=== PATIENT | female | born 1980 | race African-American/Black ===

== ENCOUNTER 2018-02-21 20:45 | Emergency (ER) | payer MEDICAID ==
[~2018-02-21] VITALS: Ht 149.9 cm; Wt 59.0 kg
[~2018-02-21 20:45] MED LIST: BUPROPION; DIVALPROEX; RISPERIDONE
[2018-02-21 21:04] VITALS: BP 103/44
== END 2018-02-22 | disposition left against medical advice (07) ==
LOC: ER 20:45
DX: R10.9 Unspecified abdominal pain (principal); F17.200 Nicotine dependence, unspecified, uncomplicated; Z53.21 Procedure and treatment not carried out due to patient leaving prior to being seen by health care provider

== ENCOUNTER 2018-02-22 21:16 | Emergency (ER) | payer MEDICAID ==
[~2018-02-22] VITALS: Ht 149.9 cm; Wt 58.0 kg
[2018-02-23 03:16] LABS: CLARITY URINE CLEAR (CLEAR); COLOR URINE YELLOW (YELLOW); KETONES URINE NEGATIVE (NEGATIVE); LEUKOCYTE ESTERASE URINE NEGATIVE (NEGATIVE); NITRITE URINE NEGATIVE (NEGATIVE); OCCULT BLOOD URINE NEGATIVE (NEGATIVE); PROTEIN URINE NEGATIVE (NEGATIVE); SPECIFIC GRAVITY URINE 1.019 (1.005-1.030)
[2018-02-23] MEDS ORDERED: LIDOCAINE HCL 1% 20ML VIAL (Pyxis) INJ INFIL ONE (03:30)
[2018-02-23] MEDS ORDERED: CEFTRIAXONE SODIUM 250 MG/VIAL IM ONE (03:30)
[2018-02-23] MEDS ORDERED: AZITHROMYCIN 500 MG TABLET PO ONE (03:30)
[2018-02-23 04:20] VITALS: BP 100/60
== END 2018-02-23 04:20 | disposition home or self-care (01) ==
LOC: ER 21:16
DX: N89.8 Other specified noninflammatory disorders of vagina (principal)
CPT/HCPCS: 81003; 87210; 96372; 99284; J0696; J3490; Z7610; 99406

== ENCOUNTER 2018-04-15 10:32 | Emergency (ER) | payer MEDICAID ==
[~2018-04-15] VITALS: Ht 152.4 cm; Wt 62.0 kg
[2018-04-15] MEDS ORDERED: ONDANSETRON HCL 4MG/2ML VIAL IV STA (12:26)
[2018-04-15] MEDS ORDERED: SODIUM CHLORIDE 0.9% 1,000 ML IV ONE (12:26)
[2018-04-15 13:28] LABS: BASOPHILS % 0.4 % (0.0-2.0); EOSINOPHILS % 0.2 % (0.0-5.0); HEMATOCRIT. 25.7 % (36.0-48.0); HEMOGLOBIN. 8.2 g/dL (12.0-16.0); LYMPHOCYTES % 38.3 % (20.0-50.0); MEAN CORPUSCULAR HEMOGLOBIN 25.1 pg (28.0-32.0); MEAN CORPUSCULAR VOLUME 78.3 fL (81.0-99.0); MEAN PLATELET VOLUME 8.4 fl (7.4-10.4); NEUTROPHILS % 55.1 % (40.0-76.0); PLATELET 453 x1000/uL (130-400); RED BLOOD CELL COUNT 3.28 mill/uL (4.2-5.4); RED CELL DISTRIBUTION WIDTH 17.3 % (11.6-14.6)
[2018-04-15 13:32] LABS: CHLORIDE 104 mEq/L (98-107)
[2018-04-15 13:52] LABS: HCG SCREEN NEGATIVE
[2018-04-15 15:22] LABS: CLARITY URINE CLOUDY (CLEAR); COLOR URINE YELLOW (YELLOW); KETONES URINE NEGATIVE (NEGATIVE); LEUKOCYTE ESTERASE URINE NEGATIVE (NEGATIVE); NITRITE URINE NEGATIVE (NEGATIVE); OCCULT BLOOD URINE NEGATIVE (NEGATIVE); PH URINE 6.5 (4.5-8.0); PROTEIN URINE NEGATIVE (NEGATIVE); SPECIFIC GRAVITY URINE 1.013 (1.005-1.030); UROBILINOGEN URINE 0.2 E.U./dL (0.2-1.0)
[2018-04-15 16:54] VITALS: BP 101/59
== END 2018-04-15 17:01 | disposition home or self-care (01) ==
LOC: ER 10:32
DX: R19.7 Diarrhea, unspecified (principal); D50.8 Other iron deficiency anemias; R11.0 Nausea; R10.10 Upper abdominal pain, unspecified; F17.200 Nicotine dependence, unspecified, uncomplicated
CPT/HCPCS: 36415; 80053; 81003; 83605; 83690; 84703; 85025; 85610; 96361; 96374; 99284; 99406; J2405; J7030